=== PATIENT | female | born 1995 | race African-American/Black ===

== ENCOUNTER 2021-05-29 22:06 | Emergency (ER) | payer SELFPAY ==
[~2021-05-29] VITALS: Ht 165.1 cm; Wt 51.0 kg
[2021-05-30 00:55] VITALS: BP 120/88
== END 2021-05-30 01:04 | disposition home or self-care (01) ==
LOC: ER 22:06
DX: S01.81XA Laceration without foreign body of other part of head, initial encounter (principal); W39.XXXA Discharge of firework, initial encounter; Y93.89 Activity, other specified; Y92.480 Sidewalk as the place of occurrence of the external cause
CPT/HCPCS: 12011; 99282